=== PATIENT | female | born 1965 | race Caucasian/White ===

== ENCOUNTER → 2023-03-28 11:13 | Outpatient (BNVA) | payer OTHER, SELFPAY | PROVIDERS: PCP Nurse Practitioner Family; Visit Provider Physician Assistant Surgical ==

== ENCOUNTER 2023-04-25 08:38 | Outpatient (REF) | payer OTHER, SELFPAY ==
[2023-04-25 10:26] LABS: MANUAL DIFF FLAG NO
[2023-04-25 11:09] LABS: Basophils Absolute Auto 0.1 X10*3/uL (0.0-0.2); Basophils Percent Auto 0.8 % (0-2); Eosinophils Absolute Auto 0.1 X10*3/uL (0.0-0.4); Eosinophils Percent Auto 1.4 % (0-4); Hematocrit 38.2 % (37.0-47.0); Hemoglobin 12.8 g/dl (12.0-16.0); Imm Gran Abs Auto 0.01 X10*3/uL (0.00-0.03); Imm Gran Pct Auto 0.2 % (0.0-0.4); Lymphocytes Percent Auto 31.9 % (20-40); Mean Corpuscular HGB Conc 33.5 g/dl (31.0-35.0); Mean Corpuscular Volume 86.4 fL (80.0-98.0); Mean Platelet Volume 10.1 fL (9.4-12.3); Monocytes Absolute Auto 0.6 X10*3/uL (0.1-1.2); Monocytes Percent Auto 9.6 % (2-11); Neutrophils Absolute Auto 3.5 x10*3/uL (2.0-8.3); Neutrophils Percent Auto 56.1 % (45-73); Platelet Count 312 X10*3/uL (160-400); Red Blood Count 4.42 X10*6/uL (4.20-5.50); Red Cell Distribution Width 13.8 % (11.0-16.0); White Blood Count 6.3 X10*3/uL (4.8-10.8)
[2023-04-25 11:18] LABS: Estimated Average Glucose 105 mg/dL; Hemoglobin A1c % 5.3 %
[2023-04-25 12:13] LABS: Alanine Aminotransferase 30 U/L (0-31); Albumin Level 4.1 g/dL (3.5-5.0); Alkaline Phosphatase 86 U/L (39-117); Anion Gap 9 (12-20); Aspartate Amino Transferase 18 U/L (5-31); Bilirubin Total 0.5 mg/dL (0.0-1.0); Blood Urea Nitrogen 23 mg/dL (9-16); C Reactive Protein 0.43 mg/dL (< or = 0.50); Calcium 9.4 mg/dL (8.4-10.2); Carbon Dioxide 26 mmol/L (22-29); Chloride 109 mmol/L (96-108); Cholesterol 168 mg/dL; Estimated Glomerular Filt Rate > 60; Glucose Random 100 mg/dL (60-115); HDL Cholesterol 53 mg/dL; Iron 82 mcg/dL (30-160); LDL Cholesterol Calculated 102 mg/dl; Percent Iron Saturation 27 % (15-50); Sodium 140 mmol/L (135-145); Total Iron Binding Capacity 303 mcg/dL (228-428); Total Protein 7.2 g/dL (6.5-8.0); Triglycerides 69 mg/dL; Unsaturated Iron Binding 221 ug/dL
[2023-04-25 12:37] LABS: Folate 17.1 ng/mL (> or = 4.0); Vitamin B12 664 pg/mL (200-900)
[2023-04-25 12:40] LABS: Ferritin 39 ng/mL (10-250); Insulin 10 uU/mL (2-29); TSH reflex Free T4 0.93 uIU/mL (0.32-4.0); Vitamin D 25-OH Total 33.9 ng/mL (>30)
[2023-04-27 13:19] LABS: PTHI 39 pg/mL (16-77)
[2023-04-30 02:49] LABS: Zinc 96 mcg/dL (60-130)
[2023-05-02 17:03] LABS: Vitamin A 44 mcg/dL (38-98)
[2023-05-03 11:04] LABS: Vitamin B1 18 nmol/L (8-30)
== END 2023-04-25 08:39 | disposition home or self-care (01) ==
LOC: HO.LAB 08:38
PROVIDERS: PCP Nurse Practitioner Family; Visit Provider Physician Assistant Surgical
DX: E66.01 Morbid (severe) obesity due to excess calories (principal); E78.00 Pure hypercholesterolemia, unspecified; I10 Essential (primary) hypertension; M19.90 Unspecified osteoarthritis, unspecified site; E63.9 Nutritional deficiency, unspecified; Z79.899 Other long term (current) drug therapy
CPT/HCPCS: 36415; 80053; 80061; 82306; 82607; 82728; 82746; 83036; 83525; 83540; 83970; 84425; 84443; 84590; 84630; 85025; 86140

== ENCOUNTER 2023-05-24 08:31 | Outpatient (AMB) | payer OTHER, SELFPAY ==
--- NOTE | 2023-05-24 08:41 | MHC.AMNUTRGE ---
Intake VS Expanded 05/24/23 08:54 Height 5 ft 2 in Weight 208 lb BMI 38.0 Body Fat 94.4 Body Fat Percentage 45.3 Muscle Mass 108.0 Visceral Mass 14 Water Mass 80.6 BMR 1,590 Intake Visit Reasons: initial nutrition , [facility] Modeling Instructor Required: No Allergies Penicillins Allergy (Mild, Verified 04/25/23 08:48) VOMITING azithromycin Allergy (Mild, Uncoded 03/28/23 11:38) VOMITING CODIENE Allergy (Mild, Uncoded 03/28/23 11:38) VOMITING HPI Nutrition Presentation Details Medical weight loss-start date (04/25/23) Starting weight 221# Current weight 208# Pts goal weight is 150# Reason for consult elevated BMI Diet Assmnt Details Pt is doing well with healthy eating, has lost 13# since beginning the program. Breakfast: Likes to have smoothies with protein powder most days, or namibian yogurt with fruit Lunch: Salad with 3 oz chicken or shrimp - has a food scale and uses it Snack fit crunch protein bar dinner 3oz protein and vegetable Loves to cook. Lives with her who is in the program Exercise: walking 2-3 miles daily 4 daily per week . her goal is to go to the gym for weight training exercise. used to teach exercise classes . If I have someone to exercise with I will do it . We discussed exercising with her Previous weight loss methods attempted Elisha Hammond and [facility] [employer] Dietary counseling reduction Who buys your food self Who prepares/cooks your food self Diagnosis Nutrition problem #1 overweight/obesity As related to (etiology) #1 excess energy intake and physical inactivity As evidenced by (sign/symptom) #1 high BMI Monitoring/Goals Nutrition problem monitoring total energy intake, level of knowledge/skill, total PRO intake, total CHO intake and weight Outcome progress progressing Learning/Education Readiness to learn good Stages of change action Educational materials provided Yes Most Recent Diabetes Results: Cholesterol 168 mg/dL 04/25/23 HDL Cholesterol 53 mg/dL 04/25/23 Triglycerides 69 mg/dL 04/25/23 Creatinine 0.68 mg/dL (0.5-1.4) 04/25/23 Blood Urea Nitrogen 23 mg/dL (9-16) H 04/25/23 Sodium 140 mmol/L (135-145) 04/25/23 Potassium 4.0 mmol/L (3.3-5.1) 04/25/23 Chloride 109 mmol/L (96-108) H 04/25/23 Carbon Dioxide 26 mmol/L (22-29) 04/25/23 Calcium 9.4 mg/dL (8.4-10.2) 04/25/23 AST 18 U/L (5-31) 04/25/23 ALT 30 U/L (0-31) 04/25/23 Total Protein 7.2 g/dL (6.5-8.0) 04/25/23 Albumin 4.1 g/dL (3.5-5.0) 04/25/23 PFSH Surgical History Hx of cholecystectomy Hx of wisdom tooth extraction Family History Mother Afib Father Heart problem Brother No problems noted. Son Colitis Daughter Colitis Social History Alcohol intake: current Alcohol intake frequency: holidays/special occasions only Patient Tobacco Use Status: Never used Tobacco Assessment & Plan Assessment & Plan (1) Obesity (BMI 30-39.9): Code(s): E66.9 - Obesity, unspecified Patient Instructions: Begin strength training 2-3x per week , continue cardio. Continue high-protein healthy eating plan. Recommended adding 2000 IUs of vitamin-D to her supplement regimen given her vitamin-D lab results , not quite optimal. Patient will follow-up as scheduled next with Terese. May schedule appointment with me at the end of the medical weight loss program as desired by patient Coding Level of Care Code Nutr Indiv Intake (29382) Diagnoses Obesity (BMI 30-39.9) E66.9 Time Spent (min) 45
[2023-05-24 08:54] VITALS: BMI 38.0
== END 2023-05-24 09:39 | disposition home or self-care (01) ==
PROVIDERS: PCP Nurse Practitioner Family; Visit Provider Dietitian, Registered
DX: E66.9 Obesity, unspecified (principal)

== ENCOUNTER → 2023-05-24 08:31 | Outpatient (BNVA) | payer OTHER, SELFPAY | PROVIDERS: PCP Nurse Practitioner Family; Visit Provider Dietitian, Registered | DX: E66.9 Obesity, unspecified (principal); Z71.3 Dietary counseling and surveillance; Z68.38 Body mass index [BMI] 38.0-38.9, adult | CPT/HCPCS: 97802 ==

== ENCOUNTER 2023-06-20 14:56 | Outpatient (AMB) | payer OTHER, SELFPAY ==
--- NOTE | 2023-06-20 15:16 | A.OFFVIS_ITS ---
Intake VS Expanded 06/20/23 15:30 Height 5 ft 2 in Weight 200 lb 9.6 oz BMI 36.7 BP 141/71 H Blood Pressure Location Rt brachial Blood Pressure Position Sitting Pulse 82 Pulse Source Pulse Oximeter Temp 95.0 F L Temperature Source Temporal Artery Scan Pulse Oximetry 98 Oxygen Delivery Method Room Air Body Fat 86.4 Body Fat Percentage 43.1 Free Fat Mass 114.0 Muscle Mass 108.2 Visceral Mass 13.0 Water Mass 80.6 BMR 1,579 Intake Visit Reasons: MWL follow up Allergies Penicillins Allergy (Mild, Verified 06/20/23 15:27) VOMITING azithromycin Allergy (Mild, Uncoded 03/28/23 11:38) VOMITING CODIENE Allergy (Mild, Uncoded 03/28/23 11:38) VOMITING Medication List - Last Reconciled 06/20/23 by POLLY Galindo amlodipine 5 mg PO DAILY atorvastatin 20 mg PO DAILY biotin 600 mcg PO DAILY fluoxetine 20 mg PO DAILY multivitamin 1 tab PO DAILY HPI HPI Comments History of Present Illness Details Pt presents in followup for [facility]. Visit #3 Starting weight: 221.2/BMI 40.5 Weight at last visit: 208 Total weight change: -20.6 Meal plan: Breakfast: Likes to have smoothies with protein powder most days, or salvadorean yogurt with fruit Lunch:? Salad with 3 oz chicken or shrimp - has a food scale and uses it Snack fit crunch protein bar dinner 3oz protein and vegetable Exercise: walking 2-3 miles 4 days per week, occasional elliptical PFSH Surgical History Hx of cholecystectomy Hx of wisdom tooth extraction Family History Mother Afib Father Heart problem Brother No problems noted. Son Colitis Daughter Colitis Social History Alcohol intake: current Alcohol intake frequency: holidays/special occasions only Patient Tobacco Use Status: Never used Tobacco Assessment & Plan Assessment & Plan (1) Hypertension: Code(s): I10 - Essential (primary) hypertension (2) High cholesterol: Code(s): E78.00 - Pure hypercholesterolemia, unspecified (3) Arthritis: Code(s): M19.90 - Unspecified osteoarthritis, unspecified site (4) Obesity: Code(s): E66.9 - Obesity, unspecified Plan Pt doing very well on current plan. Labs reviewed. RTC 4-6 weeks and can schedule f/u with RD as well after next visit. Patient is obese and is not considered stable at this time. I spent a total of 30 minutes reviewing/updating records, examining the patient and counseling the patient on weight management as detailed above. Coding Level of Care Code Est Pt Level 4 (46786) Diagnoses Hypertension I10 High cholesterol E78.00 Arthritis M19.90 Obesity E66.9
[2023-06-20 15:30] VITALS: BP 141/71; PULSE 82; TEMP 35; O2SAT 98; BMI 36.7
== END 2023-06-20 15:54 | disposition home or self-care (01) ==
PROVIDERS: PCP Nurse Practitioner Family; Visit Provider Physician Assistant Surgical
DX: E66.9 Obesity, unspecified (principal); Z68.36 Body mass index [BMI] 36.0-36.9, adult; I10 Essential (primary) hypertension; E78.00 Pure hypercholesterolemia, unspecified
CPT/HCPCS: 99214

== ENCOUNTER → 2023-06-20 14:56 | Outpatient (BNVA) | payer OTHER, SELFPAY | PROVIDERS: PCP Nurse Practitioner Family; Visit Provider Physician Assistant Surgical ==

== ENCOUNTER → 2023-10-12 09:55 | Outpatient (BNVA) | payer OTHER, SELFPAY | PROVIDERS: PCP Nurse Practitioner Family; Visit Provider Physician Assistant Surgical ==

== ENCOUNTER 2024-10-29 08:53 | Outpatient (AMB) | payer OTHER, SELFPAY ==
--- NOTE | 2024-10-29 09:02 | MHC.OFFVIS ---
Vital Signs 10/29/24 09:08 Height 5 ft 2 in Weight 227 lb 11.8 oz BMI 41.6 BP 130/80 Blood Pressure Location Lt brachial Position Sitting Pulse 81 Pulse Source Pulse Oximeter Pulse Oximetry (%) 97 Oxygen Delivery Method Room Air Intake Visit Reasons: Arthritis ([facility] records not revd) Allergies Penicillins Allergy (Mild, Verified 10/12/23 10:18) VOMITING azithromycin Allergy (Verified 10/29/24 09:04) Vomiting codeine Allergy (Verified 10/29/24 09:04) Vomiting HPI HPI Arthritis ([facility] records not revd): Details: She has persistent hand and foot pain from arthritis. Hard to open jars. MS 10 minutes. Pain in CMC and MCPs. Gained nuria due to of mother and friend. Failed meloxicam. She ran out after last visit and did not notice a difference uses ibuprofen 600mg or 800mg at the end of the day. Diclofenac gel 1% PRN. Plan to work out at the gym 3 times a week PFSH Surgical History Hx of wisdom tooth extraction Hx of cholecystectomy Family History Mother Afib Father Heart problem Brother No problems noted. Son Colitis Daughter Colitis Social History Alcohol intake: current Alcohol intake frequency: holidays/special occasions only Patient Tobacco Use Status: Never used Tobacco Review of Systems Const All systems reviewed & are unremarkable except as noted in HPI and below Physical Exam Vital Signs: Last Vital Signs Pulse 81 10/29/24 09:08 BP 130/80 10/29/24 09:08 Pulse Ox 97 10/29/24 09:08 Oxygen Delivery Method Room Air 10/29/24 09:08 BMI result Body Mass Index 41.6 Const Other: General: Comfortable Skin: No lesions seen MSK: Squaring of bilateral CMCs with tenderness on palpation. No tenderness of MCPs. No synovitis present. Heberden nodes present. Weak broadcast director operations bilateral. Good range of motion of shoulders. Bilateral bunions and tailor's bunions noted. tender to palpate right bunion and left tailor's bunion. Assessment & Plan Assessment & Plan (1) Osteoarthritis of carpometacarpal (CMC) joint of both thumbs: Comment: She has had benefit with diclofenac gel 1% applied to affected area as needed. Failed meloxicam. We discussed conservative management. She reports pain in her MCPs. I am not able to reproduce pain this exam. There are no clinical signs of inflammatory arthritis. I will continue to monitor clinically. Code(s): M18.0 - Bilateral primary osteoarthritis of first carpometacarpal joints Category: Medical Plan: She will continue to use diclofenac 1% applied to affected area as needed CMC bilateral splints prescribed Occupational therapy prescribed to improve strength I will consider alternative oral NSAID if needed versus cortisone injection bilateral CMCs for better pain control next visit Return to clinic 3 months (2) Osteoarthritis of hand: Code(s): M19.049 - Primary osteoarthritis, unspecified hand Category: Medical Qualifiers: Laterality: bilateral Osteoarthritis type: primary Qualified Code(s): M19.041 - Primary osteoarthritis, right hand; M19.042 - Primary osteoarthritis, left hand Plan: See above (3) Bunion: Comment: Bilateral. Discussed conservative management. Code(s): M21.619 - Bunion of unspecified foot Category: Medical Plan: Wear wide supportive shoes. Recommend having 2 pairs of shoes to alternate with. She will contact science faculty member next year for another pair of custom insoles. Can consider shoes structures to stretch existing shoes and bunion cushions if needed. Continue to use diclofenac 1% applied to affected area as needed Encouraged weight loss. She is planning to exercise at the gym 3 times a week in the coming new year. We discussed the importance of having a regular daily exercise routine. (4) Tailors bunion: Code(s): M21.629 - Bunionette of unspecified foot Category: Medical Qualifiers: Laterality: bilateral Qualified Code(s): M21.621 - Bunionette of right foot; M21.622 - Bunionette of left foot Plan: See above Orders: Orders OT Evaluation and Treatment Today M18.0 - Bilateral primary osteoarthritis of first carpometacarpal joints, M19.049 - Primary osteoarthritis, unspecified hand Medications: New arm brace (Wrist Brace) As directed. Bilateral CMC splints. Dx. CMC osteoarthritis 2 ea 0RF Coding Level of Care Code Est Pt Level 4 (21707) Complex EM visit Add On G2211 Diagnoses Osteoarthritis of carpometacarpal (CMC) joint of both thumbs M18.0 Primary osteoarthritis of both hands M19.041; M19.042 Laterality: bilateral Osteoarthritis type: primary Bunion M21.619 Tailor's bunion of both feet M21.621; M21.622 Laterality: bilateral
[2024-10-29 09:08] VITALS: BP 130/80; PULSE 81; O2SAT 97; BMI 41.6
== END 2024-10-29 09:41 | disposition home or self-care (01) ==
PROVIDERS: PCP Nurse Practitioner Family; Visit Provider Internal Medicine Rheumatology
DX: M18.0 Bilateral primary osteoarthritis of first carpometacarpal joints (principal); M19.041 Primary osteoarthritis, right hand; M19.042 Primary osteoarthritis, left hand; M21.619 Bunion of unspecified foot; M21.621 Bunionette of right foot; M21.622 Bunionette of left foot
CPT/HCPCS: 99214

== ENCOUNTER 2024-12-02 07:02 | Outpatient (RCR) | payer OTHER, SELFPAY ==
--- NOTE | 2024-12-12 11:48 | MHC.OT.DC ---
[address] [phone] F: [phone] Occupational Therapy Discharge Note Patient Name: Kay Cortez Provider: Juve Chow Diagnosis: B/L Hand OA Date of Evaluation: 11/13/24 Date of Discharge: 12/12/24 Treatments to Date: 2 Discharge Status: Independent with HEP Patient Elected to Stop Discharge Summary: 59 yo female referred to OT w/ B/L hand pain due to OA. She was seen for initial eval and demo'd significant weakness significant weakness in both hands (R 10lb L 20lb) and had evidence of arthritic degeneration w/ adduction positioning of thumbs and (+) CMC grind test. She was seen for one follow up appointment and has been educated on activity modification, orthosis options and strengthening exercises. At this time she is self discharging due to high copay, but I anticipate w/ cont'd participation in HEP she will progress w/ strength and stability. Electronically Signed By: Radha Kan OTR/L CHT Reviewed/agree with student documentation: Therapist: Please Sign and return to therapist, thank you for your referral.
== END 2024-12-12 11:50 | disposition home or self-care (01) ==
LOC: HO.OT 07:02
PROVIDERS: PCP Nurse Practitioner Family; Visit Provider Internal Medicine Rheumatology
DX: M19.041 Primary osteoarthritis, right hand (principal); M19.042 Primary osteoarthritis, left hand
CPT/HCPCS: 97110; 97140; 97165

== ENCOUNTER 2025-01-28 08:00 | Outpatient (AMB) | payer OTHER, SELFPAY ==
--- NOTE | 2025-01-28 08:11 | A.OFFVIS_ITS ---
Vital Signs 01/28/25 08:13 Height 5 ft 2 in Weight 228 lb 9.91 oz BMI 41.8 BP 110/80 Blood Pressure Location Lt brachial Position Sitting Pulse 90 Pulse Source Pulse Oximeter Pulse Oximetry (%) 95 Intake Visit Reasons: 3 mnts Intake Note: Pt present today for Arthritis. Accompanied by: Self / Same As Patient Allergies Penicillins Allergy (Mild, Verified 10/12/23 10:18) VOMITING azithromycin Allergy (Verified 10/29/24 09:04) Vomiting codeine Allergy (Verified 10/29/24 09:04) Vomiting HPI HPI 3 mnts: Details: She has gone to OT and has had benefit. Co-pay is 375 dollars. She was able to do 3 sessions. She has not not had the chance take it CMC splints. She is using diclofenac gel once to twice a week. Last set of labs she had done from PCP was in July. Foot pain is relieved. She has developed a new nodule right thumb. [facility] Surgical History Hx of wisdom tooth extraction Hx of cholecystectomy Family History Mother Afib Father Heart problem Brother No problems noted. Son Colitis Daughter Colitis Social History Alcohol intake: current Alcohol intake frequency: holidays/special occasions only Patient Tobacco Use Status: Never used Tobacco Review of Systems Const All systems reviewed & are unremarkable except as noted in HPI and below Physical Exam Vital Signs: Last Vital Signs Pulse 90 01/28/25 08:13 BP 110/80 01/28/25 08:13 Pulse Ox 95 01/28/25 08:13 BMI result Body Mass Index 41.8 Const Other: General: Comfortable Skin: No lesions seen MSK: Squaring of bilateral CMCs without tenderness on palpation. No tenderness of MCPs. No synovitis present. Heberden nodes present. Nodule present on right 1st IP of hand. Assessment & Plan Assessment & Plan (1) Osteoarthritis of carpometacarpal (CMC) joint of both thumbs: Comment: Pain is controlled with diclofenac gel and exercises learned from PT. She has had benefit with diclofenac gel 1% applied to affected area as needed. Failed meloxicam. Code(s): M18.0 - Bilateral primary osteoarthritis of first carpometacarpal joints Category: Medical Plan: She will resume occupational therapy when she meets her deductible. I recommend that she obtain custom bilateral CMC splints from occupational therapist. Continue diclofenac gel 1% applied to affected area every 4-6 hours as needed LFTs ordered for drug monitoring Return to clinic in 6 months (2) Bunion: Comment: Bilateral. Pain resolved. Code(s): M21.619 - Bunion of unspecified foot Category: Medical Plan: Wear wide supportive shoes. Return to clinic in 6 (3) Tailors bunion: Comment: Pain resolved Code(s): M21.629 - Bunionette of unspecified foot Category: Medical Qualifiers: Laterality: bilateral Qualified Code(s): M21.621 - Bunionette of right foot; M21.622 - Bunionette of left foot Plan: See above Orders: Orders Alanine Aminotransferase Today M18.0 - Bilateral primary osteoarthritis of first carpometacarpal joints Aspartate Amino Transferase Today M18.0 - Bilateral primary osteoarthritis of first carpometacarpal joints Medications: New diclofenac sodium 1% apply to affected area every 4-6 hours PRN pain 2 grams topical QID 100 grams 5RF Coding Level of Care Code Est Pt Level 4 (76963) Complex EM visit Add On G2211 Diagnoses Osteoarthritis of carpometacarpal (CMC) joint of both thumbs M18.0 Bunion M21.619 Tailor's bunion of both feet M21.621; M21.622 Laterality: bilateral
[2025-01-28 08:13] VITALS: BP 110/80; PULSE 90; O2SAT 95; BMI 41.8
== END 2025-01-28 08:33 | disposition home or self-care (01) ==
LOC: HO.RHES 08:01
PROVIDERS: PCP Nurse Practitioner Family; Visit Provider Internal Medicine Rheumatology
DX: M18.0 Bilateral primary osteoarthritis of first carpometacarpal joints (principal); M21.619 Bunion of unspecified foot; M21.621 Bunionette of right foot; M21.622 Bunionette of left foot
CPT/HCPCS: 99214; G2211

== ENCOUNTER → 2025-01-28 08:00 | Outpatient (BNVA) | payer OTHER, SELFPAY | PROVIDERS: PCP Nurse Practitioner Family; Visit Provider Internal Medicine Rheumatology ==

== ENCOUNTER 2025-07-31 07:58 | Outpatient (AMB) | payer BC, SELFPAY ==
[2025-07-31 08:03] VITALS: BP 120/80; PULSE 90; O2SAT 97; BMI 40.8
--- NOTE | 2025-07-31 08:03 | A.OFFVIS_ITS ---
Vital Signs 07/31/25 08:03 Height 5 ft 2 in Weight 222 lb 14.197 oz BMI 40.8 BP 120/80 Blood Pressure Location Lt brachial Position Sitting Pulse 90 Pulse Source Pulse Oximeter Pulse Oximetry (%) 97 Oxygen Delivery Method Room Air Intake Visit Reasons: 6 Months Intake Note: Pt present today for Arthritis. Accompanied by: Self / Same As Patient Allergies Penicillins Allergy (Mild, Verified 07/31/25 08:04) VOMITING azithromycin Allergy (Verified 07/31/25 08:04) Vomiting codeine Allergy (Verified 07/31/25 08:04) Vomiting Medication List - Last Reconciled 07/31/25 by Juve Chow MD amlodipine 5 mg PO DAILY antiarthritic combination no.2 (glucosamine-chondroitin) mg PO DAILY arm brace (Wrist Brace) As directed. Bilateral CMC splints. Dx. CMC osteoarthritis atorvastatin 20 mg PO DAILY biotin 600 mcg PO DAILY diclofenac sodium 1% 2 grams topical QID fluoxetine 30 mg PO DAILY multivitamin 1 tab PO DAILY turmeric root extract 1,000 mg PO DAILY HPI HPI 6 Months: Details: He feels well. She has not needed to use ibuprofen or diclofenac gel. She is exercising regularly. She joined the [employer]. She is working on weight loss. In the past she lost 40 lb with the weight loss clinic but when her mother she gained the weight back. Hand pain and foot pain is intermittent but it is tolerable. PFSH Surgical History Hx of wisdom tooth extraction Hx of cholecystectomy Family History Mother Afib Father Heart problem Brother No problems noted. Son Colitis Daughter Colitis Social History Alcohol intake: current Alcohol intake frequency: holidays/special occasions only Patient Tobacco Use Status: Never used Tobacco Physical Exam Vital Signs: Last Vital Signs Pulse 90 07/31/25 08:03 BP 120/80 07/31/25 08:03 Pulse Ox 97 07/31/25 08:03 Oxygen Delivery Method Room Air 07/31/25 08:03 BMI result Body Mass Index 40.8 Const Other: General: Comfortable Skin: No lesions seen MSK: Squaring of bilateral CMCs without tenderness on palpation. No synovitis present. Heberden nodes present. Normal range of motion of upper extremities. Bilateral Hallux valgus and Tailor's bunion present. Assessment & Plan Assessment & Plan (1) Osteoarthritis of carpometacarpal (CMC) joint of both thumbs: Comment: Pain is controlled with home exercise program. Rheumatology history: She has had benefit with diclofenac gel 1% applied to affected area as needed. Failed meloxicam. Code(s): M18.0 - Bilateral primary osteoarthritis of first carpometacarpal joints Category: Medical Plan: Continue home exercise program Continue diclofenac gel 1% applied to affected area every 4-6 hours as needed Return to clinic PRN (2) Bunion: Comment: Bilateral. Pain resolved. Code(s): M21.619 - Bunion of unspecified foot Category: Medical Plan: Wear wide supportive shoes. Encouraged weight loss. She is working on healthy eating and has been consistent with her home exercise program. She joined the [facility]. Return to clinic PRN (3) Tailors bunion: Comment: Pain resolved Code(s): M21.629 - Bunionette of unspecified foot Category: Medical Qualifiers: Laterality: bilateral Qualified Code(s): M21.621 - Bunionette of right foot; M21.622 - Bunionette of left foot Plan: Encouraged weight loss. She is working on healthy eating and has been consistent with her home exercise program. She joined the [facility]. Return to clinic PRN Coding Level of Care Code Est Pt Level 3 (73131) Complex EM visit Add On G2211 Diagnoses Osteoarthritis of carpometacarpal (CMC) joint of both thumbs M18.0 Bunion M21.619 Tailor's bunion of both feet M21.621; M21.622 Laterality: bilateral
== END 2025-07-31 08:15 | disposition home or self-care (01) ==
PROVIDERS: PCP Nurse Practitioner Family; Visit Provider Internal Medicine Rheumatology
DX: M18.0 Bilateral primary osteoarthritis of first carpometacarpal joints (principal); M21.619 Bunion of unspecified foot; M21.621 Bunionette of right foot; M21.622 Bunionette of left foot
CPT/HCPCS: 99213; G2211